=== PATIENT | male | born 1975 | race Caucasian/White ===

== ENCOUNTER 2020-10-13 22:44 | Inpatient (IN) ==
[2020-10-13 23:28] LABS: Basophils % 0.2 % (0.0-0.8); Hematocrit 41.7 VOL% (42.0-52.0); Hemoglobin 14.6 GM/DL (14.0-18.0); Immature Granulocytes % 0.5 %; Immature Granulocytes Absolute 0.03 #; Lymphocytes # 0.7 10*3/uL (1.4-4.0); Lymphocytes % 12.4 % (21.2-54.2); Mean Corpuscular Volume 84.1 FL (87-102); Mean Platelet Volume 10.2 FL (9.6-12.0); Monocytes % 5.9 % (1.7-12.7); Platelet Count 178 T/CUMM (130-400); Red Blood Count 4.96 MC/CUMM (3.8-5.5); Red Cell Distribution Width 13.2 % (9.3-17.3); White Blood Count 5.6 T/CUMM (4-12)
[2020-10-13 23:52] LABS: Albumin 3.3 G/DL (3.4-5.0); Bilirubin,Total 1.3 MG/DL (0.20-1.00); Calcium 8.4 MG/DL (8.5-10.1); Ferritin 2395.3 ng/mL (26-388); Osmolality,Calculated 273.2 MOS/KG (273-304); Total Protein 7.6 G/DL (6.4-8.2)
[2020-10-14 01:16] LABS: ABG Base Excess 5.5 MMOL/L (-2.5-2.5); ABG HCO3 29.2 MMOL/L (20-26); ABG PCO2 40.5 MM HG (35-48); ABG PH 7.471 (7.35-7.45); ABG PO2 72.4 MM HG (80-95); ABG TCO2 24.9 MMOL/L (23-27)
[2020-10-14] MEDS ORDERED: MELATONIN 3 MG TABLET PO PRN (01:28)
[2020-10-14 04:14] LABS: Basophils % 0.2 % (0.0-0.8); Hematocrit 40.5 VOL% (42.0-52.0); Hemoglobin 14.2 GM/DL (14.0-18.0); Immature Granulocytes % 1.1 %; Immature Granulocytes Absolute 0.06 #; Lymphocytes # 0.8 10*3/uL (1.4-4.0); Lymphocytes % 13.8 % (21.2-54.2); Mean Corpuscular HGB Conc 35.1 GM/DL (32-36); Mean Corpuscular Volume 85.1 FL (87-102); Mean Platelet Volume 10.3 FL (9.6-12.0); Neutrophils % 78.9 % (38.7-73.9); Platelet Count 150 T/CUMM (130-400); Red Blood Count 4.76 MC/CUMM (3.8-5.5); White Blood Count 5.5 T/CUMM (4-12)
[2020-10-14] MEDS: SODIUM CHLOR 0.9% KCL 40 MEQ 40 MEQ/1,000 ML BAG IV SCH ×2 (04:25→17:42)
[2020-10-14 04:46] LABS: Albumin 2.9 G/DL (3.4-5.0); Bilirubin,Total 1.3 MG/DL (0.20-1.00); Calcium 8.3 MG/DL (8.5-10.1)
[2020-10-14 05:02] LABS: Ferritin 2127.8 ng/mL (26-388)
[2020-10-14] MEDS: ENOXAPARIN 40 MG/0.4 ML SYRINGE SUBCUT SCH (09:32)
[2020-10-14] MEDS: ASCORBIC ACID 500 MG TABLET PO SCH ×2 (09:33→21:33)
[2020-10-14] MEDS: CHOLECALCIFEROL 1,000 UNIT TABLET PO SCH (09:33)
[2020-10-14] MEDS: ZINC GLUCONATE 50 MG TABLET PO SCH (09:33)
[2020-10-14] MEDS: DEXAMETHASONE 4 MG/1 ML VIAL IV SCH (09:34)
[2020-10-14] MEDS: ALBUTEROL INHALER 18 GM INH SCH ×3 (09:35→20:00)
[2020-10-14] MEDS ORDERED: REMDESIVIR 200 MG in SODIUM CHLORIDE 0.9% 210 ML IV ONE (11:00)
[2020-10-15] MEDS: ALBUTEROL INHALER 18 GM INH SCH ×4 (02:00→20:48)
[2020-10-15] MEDS: SODIUM CHLOR 0.9% KCL 40 MEQ 40 MEQ/1,000 ML BAG IV SCH ×2 (04:33→19:15)
[2020-10-15 05:42] LABS: Basophils % 0.2 % (0.0-0.8); Hematocrit 38.9 VOL% (42.0-52.0); Hemoglobin 13.3 GM/DL (14.0-18.0); Immature Granulocytes % 1.1 %; Immature Granulocytes Absolute 0.05 #; Lymphocytes # 0.8 10*3/uL (1.4-4.0); Lymphocytes % 16.9 % (21.2-54.2); Mean Corpuscular HGB Conc 34.2 GM/DL (32-36); Mean Corpuscular Volume 86.3 FL (87-102); Mean Platelet Volume 10.3 FL (9.6-12.0); Monocytes % 7.8 % (1.7-12.7); Platelet Count 169 T/CUMM (130-400); Red Blood Count 4.51 MC/CUMM (3.8-5.5); Red Cell Distribution Width 12.8 % (9.3-17.3); White Blood Count 4.7 T/CUMM (4-12)
[2020-10-15 05:54] LABS: Albumin 2.7 G/DL (3.4-5.0); Bilirubin,Direct 0.19 MG/DL (0.0-0.20); Bilirubin,Indirect 0.9 MG/DL (0.0-1.0); Bilirubin,Total 1.1 MG/DL (0.20-1.00); Calcium 8.4 MG/DL (8.5-10.1); Osmolality,Calculated 281.4 MOS/KG (273-304); Potassium 3.6 MMOL/L (3.5-5.1); Total Protein 6.5 G/DL (6.4-8.2)
[2020-10-15 06:38] LABS: Lymphocytes 16 % (20-55); Segmented Neutrophils 79 % (50-85); Total Cells Counted 100
[2020-10-15 06:39] LABS: Platelet Estimate Normal; Reactive Lymphocytes Few
[2020-10-15] MEDS: ACETAMINOPHEN 325 MG TABLET PO PRN ×2 (09:44→20:49)
[2020-10-15] MEDS: DEXAMETHASONE 4 MG/1 ML VIAL IV SCH (09:46)
[2020-10-15] MEDS: CHOLECALCIFEROL 1,000 UNIT TABLET PO SCH (09:47)
[2020-10-15] MEDS: ZINC GLUCONATE 50 MG TABLET PO SCH (09:47)
[2020-10-15] MEDS: ENOXAPARIN 40 MG/0.4 ML SYRINGE SUBCUT SCH (09:47)
[2020-10-15] MEDS: ASCORBIC ACID 500 MG TABLET PO SCH ×2 (09:48→20:49)
[2020-10-15] MEDS: REMDESIVIR 100 MG in SODIUM CHLORIDE 0.9% 100 ML IV SCH (09:48)
[2020-10-16] MEDS: ALBUTEROL INHALER 18 GM INH SCH ×4 (02:06→21:05)
[2020-10-16] MEDS: SODIUM CHLOR 0.9% KCL 40 MEQ 40 MEQ/1,000 ML BAG IV SCH ×2 (05:15→17:10)
[2020-10-16 05:23] LABS: Basophils % 0.2 % (0.0-0.8); Eosinophils % 0.2 % (0.00-10.9); Hematocrit 37.7 VOL% (42.0-52.0); Hemoglobin 12.8 GM/DL (14.0-18.0); Immature Granulocytes % 1.4 %; Immature Granulocytes Absolute 0.08 #; Lymphocytes # 0.9 10*3/uL (1.4-4.0); Mean Corpuscular Volume 86.7 FL (87-102); Mean Platelet Volume 10.1 FL (9.6-12.0); Monocytes % 7.8 % (1.7-12.7); Neutrophils % 74.4 % (38.7-73.9); Platelet Count 168 T/CUMM (130-400); Red Blood Count 4.35 MC/CUMM (3.8-5.5); Red Cell Distribution Width 12.9 % (9.3-17.3); White Blood Count 5.6 T/CUMM (4-12)
[2020-10-16 05:46] LABS: Hypochromasia Slight; Microcytosis Slight; Platelet Estimate Adequate
[2020-10-16 05:57] LABS: Calcium 7.7 MG/DL (8.5-10.1); Osmolality,Calculated 282.1 MOS/KG (273-304); Potassium 3.6 MMOL/L (3.5-5.1)
[2020-10-16 06:00] LABS: Albumin 2.5 G/DL (3.4-5.0); Bilirubin,Direct 0.24 MG/DL (0.0-0.20); Bilirubin,Total 1.2 MG/DL (0.20-1.00); Total Protein 6.2 G/DL (6.4-8.2)
[2020-10-16] MEDS: DEXAMETHASONE 4 MG/1 ML VIAL IV SCH (09:40)
[2020-10-16] MEDS: CHOLECALCIFEROL 1,000 UNIT TABLET PO SCH (09:40)
[2020-10-16] MEDS: ASCORBIC ACID 500 MG TABLET PO SCH ×2 (09:41→21:05)
[2020-10-16] MEDS: ZINC GLUCONATE 50 MG TABLET PO SCH (09:41)
[2020-10-16] MEDS: ENOXAPARIN 40 MG/0.4 ML SYRINGE SUBCUT SCH (09:41)
[2020-10-16] MEDS: REMDESIVIR 100 MG in SODIUM CHLORIDE 0.9% 100 ML IV SCH (09:42)
[2020-10-16] MEDS: ACETAMINOPHEN 325 MG TABLET PO PRN (09:42)
[2020-10-17] MEDS: ALBUTEROL INHALER 18 GM INH SCH ×2 (01:15→21:08)
[2020-10-17] MEDS: SODIUM CHLOR 0.9% KCL 40 MEQ 40 MEQ/1,000 ML BAG IV SCH ×2 (03:24→14:07)
[2020-10-17] MEDS: ACETAMINOPHEN 325 MG TABLET PO PRN ×3 (03:26→21:09)
[2020-10-17 07:04] LABS: Basophils # 0.1 10*3/uL (0.0-0.2); Basophils % 1.2 % (0.0-0.8); Eosinophils % 0.2 % (0.00-10.9); Hematocrit 37.8 VOL% (42.0-52.0); Hemoglobin 13.1 GM/DL (14.0-18.0); Immature Granulocytes % 4.1 %; Immature Granulocytes Absolute 0.24 #; Lymphocytes # 0.9 10*3/uL (1.4-4.0); Mean Corpuscular HGB Conc 34.7 GM/DL (32-36); Mean Corpuscular Volume 86.5 FL (87-102); Mean Platelet Volume 10.4 FL (9.6-12.0); Monocytes % 6.8 % (1.7-12.7); Neutrophils % 71.7 % (38.7-73.9); Platelet Count 173 T/CUMM (130-400); Red Blood Count 4.37 MC/CUMM (3.8-5.5); Red Cell Distribution Width 12.5 % (9.3-17.3); White Blood Count 5.9 T/CUMM (4-12)
[2020-10-17 07:31] LABS: Hypochromasia Slight; Microcytosis Slight; Platelet Estimate Adequate
[2020-10-17 07:32] LABS: Calcium 8.3 MG/DL (8.5-10.1); Osmolality,Calculated 281.3 MOS/KG (273-304); Potassium 3.9 MMOL/L (3.5-5.1)
[2020-10-17] MEDS: DEXAMETHASONE 4 MG/1 ML VIAL IV SCH (09:21)
[2020-10-17] MEDS: REMDESIVIR 100 MG in SODIUM CHLORIDE 0.9% 100 ML IV SCH (09:21)
[2020-10-17] MEDS: ASCORBIC ACID 500 MG TABLET PO SCH ×2 (09:22→21:09)
[2020-10-17] MEDS: ENOXAPARIN 40 MG/0.4 ML SYRINGE SUBCUT SCH (09:22)
[2020-10-17] MEDS: CHOLECALCIFEROL 1,000 UNIT TABLET PO SCH (09:22)
[2020-10-17] MEDS: ZINC GLUCONATE 50 MG TABLET PO SCH (09:23)
[2020-10-18] MEDS: SODIUM CHLOR 0.9% KCL 40 MEQ 40 MEQ/1,000 ML BAG IV SCH ×2 (00:52→09:45)
[2020-10-18 06:13] LABS: Basophils % 0.3 % (0.0-0.8); Eosinophils % 0.4 % (0.00-10.9); Hematocrit 37.9 VOL% (42.0-52.0); Hemoglobin 12.9 GM/DL (14.0-18.0); Immature Granulocytes % 4.5 %; Immature Granulocytes Absolute 0.34 #; Lymphocytes # 1.3 10*3/uL (1.4-4.0); Lymphocytes % 17.2 % (21.2-54.2); Mean Corpuscular Volume 85.6 FL (87-102); Mean Platelet Volume 10.5 FL (9.6-12.0); Monocytes % 6.2 % (1.7-12.7); Neutrophils % 71.4 % (38.7-73.9); Platelet Count 200 T/CUMM (130-400); Red Blood Count 4.43 MC/CUMM (3.8-5.5); Red Cell Distribution Width 12.6 % (9.3-17.3); White Blood Count 7.6 T/CUMM (4-12)
[2020-10-18 06:33] LABS: Albumin 2.4 G/DL (3.4-5.0); Calcium 8.1 MG/DL (8.5-10.1); Ferritin 1181.6 ng/mL (26-388); Osmolality,Calculated 276.5 MOS/KG (273-304); Potassium 3.9 MMOL/L (3.5-5.1); Total Protein 6.3 G/DL (6.4-8.2)
[2020-10-18 06:42] LABS: Hypochromasia Slight; Microcytosis Slight; Ovalocytes Slight; Platelet Estimate Adequate
[2020-10-18 07:51] VITALS: BP 143/92
[2020-10-18] MEDS: ENOXAPARIN 40 MG/0.4 ML SYRINGE SUBCUT SCH (08:38)
[2020-10-18] MEDS: ZINC GLUCONATE 50 MG TABLET PO SCH (08:38)
[2020-10-18] MEDS: DEXAMETHASONE 4 MG/1 ML VIAL IV SCH (08:38)
[2020-10-18] MEDS: CHOLECALCIFEROL 1,000 UNIT TABLET PO SCH (08:38)
[2020-10-18] MEDS: ACETAMINOPHEN 325 MG TABLET PO PRN (08:39)
[2020-10-18] MEDS: ASCORBIC ACID 500 MG TABLET PO SCH (08:39)
[2020-10-18] MEDS ORDERED: amLODIPine 10 MG TABLET PO SCH (09:00)
[2020-10-18] MEDS: REMDESIVIR 100 MG in SODIUM CHLORIDE 0.9% 100 ML IV SCH (09:05)
== END 2020-10-18 10:21 | disposition home or self-care (01) | DRG 177 ==
LOC: N.ED 22:44 → N.EDINP 10-14 02:06 → SUATTDRO 10-14 02:06 → N.2E 10-14 02:56
PROVIDERS: ADMIT Internal Medicine; ATTEND Emergency Medicine